=== PATIENT | male | born 1965 | race African-American/Black ===

== ENCOUNTER 2017-04-12 11:43 | Emergency (ER) | payer OTHER ==
[~2017-04-12] VITALS: Ht 175.3 cm; Wt 66.4 kg
[2017-04-12 14:23] VITALS: BP 127/74
== END 2017-04-12 14:24 ==
LOC: EME 11:43
DX: M25.551 Pain in right hip (principal); V54.6XXA Passenger in pick-up truck or van injured in collision with heavy transport vehicle or bus in traffic accident, initial encounter
CPT/HCPCS: 73502; 99281; 99283; J1885